=== PATIENT | female | born 1995 | race Caucasian/White ===

== ENCOUNTER 2017-07-25 13:54 | Emergency (ER) | payer MEDICAID, SELFPAY ==
[2017-07-25 13:55] VITALS: BP 139/90; PULSE 70; RESP 16; TEMP 36.8; O2SAT 100; BMI 20.2
--- NOTE | 2017-07-25 16:25 | ED.DCSUM_ITS ---
- ER Visit Summary Date of Service: 07/25/17 Chief Complaint: Dental pain History of Present Illness: The patient is a [address] Preciado, her dentist, hold 5 teeth yesterday and placed her on Ultram. She reports the medication makes her nauseated. She has been unable to take it. She has a sharp, throbbing pain is 10 out of 10 severity. Is worsened with eating or swallowing. She denies any other complaints. Physical Examination: Vitals: Stable. Afebrile. Mouth: No trismus. No edema of the floor of the mouth. Right mandibular second and third molars are surgically absent. Left maxillary second and third molars are surgically absent. Left mandibular third molar is absent. There is no exposed bone at any extraction site to suggest a dry socket. General: A&O x 3. NAD. Cardiovascular exam: Regular rate and rhythm, no murmur, rub or gallop. Respiratory exam: Clear to auscultation bilaterally. No wheezes or stridor. Abdominal exam: Soft, nontender, nondistended, normal bowel sounds. No peritoneal signs. Extremity: No clubbing, cyanosis, or edema. Emergency Department Course and Treatment: An [facility] report was obtained which shows that she is only had one prescription for opiates in the past year other than the Ultram that she got filled yesterday. She is given a dose of oxycodone and Zofran here. Treatment Plan: Patient will be discharged 20 oxycodone and Zofran. Instructed to follow-up with her dentist in 3-5 days not improving. Disposition: To home in improved and stable condition. Impression: 1. Post extraction pain. This note was generated with [employer] dictation software. It may contain incorrect words, spelling, and punctuation that were not noted in review of the chart prior to signing ED Disposition - Plan for ED Patient: Disposition: Home or Assisted Living Chief Complaint: Dental Instructions: ED Tooth Pain Prescriptions: Oxycodone HCl/Acetaminophen [Percocet 5/325] 1 tablet PO Q6H PRN PRN 5 Days #20 tablet PRN Reason: Pain Ondansetron [Zofran Odt] 4 mg PO Q8H PRN PRN #10 tablet PRN Reason: Nausea Referrals: Dentist,Your [STAFF PHYSICIAN] - 3-5 Days if not improving
[2017-07-25] MEDS: Ondansetron ODT 4 MG Tablet PO (16:30)
[2017-07-25] MEDS: oxyCODONE 5 MG Tablet 10 MG PO (16:42)
--- NOTE | 2017-07-25 16:50 | ED.RN ---
Verbal and written d/c instructions given. All questions answered. Skin w/d. ABCS intact. Gait steady out of department.
== END 2017-07-25 16:45 | disposition home or self-care (01) ==
PROVIDERS: Emergency Provider Emergency Medicine; Family Provider Nurse Practitioner Family; PCP Nurse Practitioner Family
DX: K08.89 Other specified disorders of teeth and supporting structures (principal); Z98.818 Other dental procedure status; F17.200 Nicotine dependence, unspecified, uncomplicated
CPT/HCPCS: 99283

== ENCOUNTER 2017-09-26 22:51 | Emergency (ER) | payer MEDICAID, SELFPAY ==
[2017-09-26 22:52] VITALS: BP 128/75; PULSE 60; RESP 16; TEMP 36.7; O2SAT 100; BMI 21.4
--- NOTE | 2017-09-26 23:08 | RAD_ITS ---
STUDY: X-RAY - RIGHT ELBOW REASON FOR EXAM: Female, 22 years old. Elbow pain. TECHNIQUE: 3 view(s) of the elbow. COMPARISON: None. FINDINGS: Normal visualized humerus, radius and ulna. Normal radiocapitellar and ulnotrochlear articulations. The soft tissue structures are unremarkable. RAD/Elbow min 3 Views IMPRESSION: Normal x-ray examination of the elbow. Electronically Signed: Vamsi Stephenson MD at 0:39 EDT , Service support ,
--- NOTE | 2017-09-26 23:10 | ED.VISSUMM ---
- ER Visit Summary Date of Service: 09/26/17 Chief Complaint: Right elbow pain History of Present Illness: The patient is a 22 F presenting with right elbow pain. She states it started this evening. She does a lot of pulling and pushing at work. She does not recall a specific injury. She tried ibuprofen at home. She was concerned when she felt her elbow because she thought the bones were out of place. She is able to move her elbow without difficulty. She has tingling in her small and ring finger. No other complaints. Physical Examination: Vitals are stable. Patient is afebrile. Alert no acute distress. HEENT exam is unremarkable. Neck is nontender Lungs are equal bilaterally. Heart is regular rate and rhythm. Extremities right medial elbow tenderness with AFROM. Normal pulses and cap refill. Paresthesia right ring and small finger. Skin is warm and dry. No focal neurologic deficit. Remainder of exam is unremarkable. Emergency Department Course and Treatment: Ice pack was applied. Right elbow x-ray is normal. She is advised to ice and elevate. She is given a sling and advised range of motion exercises. Advised to follow-up with her primary care physician. Advised return ED if worsening complaints. Disposition: Discharge home Impression: Right elbow strain This note was generated with [employer] dictation software. It may contain incorrect words, spelling, and punctuation that were not noted in review of the chart prior to signing ED Disposition - Plan for ED Patient: Disposition: Home or Assisted Living Chief Complaint: Upper Extremity Injury Instructions: ED Sprain Elbow Prescriptions: Naproxen [Naprosyn] 500 mg PO BID PRN #20 tablet Referrals: Maye Dacosta NP-C [Primary Care Provider] -
--- NOTE | 2017-09-26 23:14 | ED.DCSUM_ITS ---
- ER Visit Summary Date of Service: 09/26/17 Chief Complaint: Right elbow pain History of Present Illness: The patient is a 22 F presenting with right elbow pain. She states it started this evening. She does a lot of pulling and pushing at work. She does not recall a specific injury. She tried ibuprofen at home. She was concerned when she felt her elbow because she thought the bones were out of place. She is able to move her elbow without difficulty. She has tingling in her small and ring finger. No other complaints. Physical Examination: Vitals are stable. Patient is afebrile. Alert no acute distress. HEENT exam is unremarkable. Neck is nontender Lungs are equal bilaterally. Heart is regular rate and rhythm. Extremities right medial elbow tenderness with AFROM. Normal pulses and cap refill. Paresthesia right ring and small finger. Skin is warm and dry. No focal neurologic deficit. Remainder of exam is unremarkable. Emergency Department Course and Treatment: Ice pack was applied. Right elbow x- ray is normal. She is advised to ice and elevate. She is given a sling and advised range of motion exercises. Advised to follow-up with her primary care physician. Advised return ED if worsening complaints. Disposition: Discharge home Impression: Right elbow strain This note was generated with [employer] dictation software. It may contain incorrect words, spelling, and punctuation that were not noted in review of the chart prior to signing ED Disposition - Plan for ED Patient: Disposition: Home or Assisted Living Chief Complaint: Upper Extremity Injury Instructions: ED Sprain Elbow Prescriptions: Naproxen [Naprosyn] 500 mg PO BID PRN #20 tablet Referrals: Maye Dacosta NP-C [Primary Care Provider] -
[2017-09-27] MEDS: oxyCODONE 5 MG Tablet PO (00:02)
--- NOTE | 2017-09-27 00:43 | ED.DEP ---
ED Disposition - Plan for ED Patient: Chief Complaint: Upper Extremity Injury Instructions: ED Sprain Elbow Prescriptions: Naproxen [Naprosyn] 500 mg PO BID PRN #20 tablet Referrals: Maye Dacosta NP-C [Primary Care Provider] -
[2017-09-27 00:58] VITALS: PULSE 62; RESP 16; O2SAT 97
== END 2017-09-27 00:59 | disposition home or self-care (01) ==
LOC: ED 23:37
PROVIDERS: Emergency Provider Emergency Medicine; Family Provider Nurse Practitioner Family; PCP Nurse Practitioner Family
DX: S46.811A Strain of other muscles, fascia and tendons at shoulder and upper arm level, right arm, initial encounter (principal); R20.2 Paresthesia of skin; X58.XXXA Exposure to other specified factors, initial encounter; Y93.9 Activity, unspecified; Y92.9 Unspecified place or not applicable; Z72.0 Tobacco use
CPT/HCPCS: 73080; 99283

== ENCOUNTER 2017-11-03 20:36 | Emergency (ER) | payer MEDICAID, SELFPAY ==
[2017-11-03 20:37] VITALS: BP 129/59; PULSE 78; RESP 24; TEMP 37; O2SAT 97; BMI 21.9
--- NOTE | 2017-11-03 20:48 | EKG12_ITS ---
Test Reason : OVERDOSE Blood Pressure : / mmHG Vent. Rate : 062 BPM Atrial Rate : 062 BPM P-R Int : 134 ms QRS Dur : 088 ms QT Int : 420 ms P-R-T Axes : 058 -19 049 degrees QTc Int : 426 ms Normal sinus rhythm Normal ECG Confirmed by MARICHUY HALLMAN, SAURAV ([id number]), photo editor ALEX GUADARRAMA ([id number]) on 11/09/2017 3:33:28 PM Referred By: YU Confirmed By:SAURAV BENEDICT MD
--- NOTE | 2017-11-03 20:57 | ED.VISSUMM ---
- ER Visit Summary Date of Service: 11/03/17 Chief Complaint: Overdose History of Present Illness: The patient is a 22 F presents to the emergency department after overdose. Patient states she has been struggling with her depression. States that her mother just about a year ago tomorrow. She states around this time, she has been increasingly depressed and anxious. She states she has been having a difficult time coping with it. She apparently had taken approximately 10 of her 25 mg hydroxyzine. She states that she was not trying to harm herself, but just wanted to feel better. She also admits to drinking alcohol. A friend had notified police of this. She was brought in by squad and underwent a psychiatric hold by the [facility] department. Physical Examination: Vital signs reviewed General: Well-nourished, well-developed Head: Normocephalic, atraumatic Eyes: Pupils equal and reactive, extraocular muscles intact Neck, supple, no lymphadenopathy Heart: Regular rate and rhythm Respiratory: No distress, clear bilaterally Abdomen: Soft, nontender, nondistended, no peritoneal signs Back: Nontender Extremities: Nontender, no edema, no cords Skin: Normal color no rash Neuro: Alert and oriented, no focal or lateralizing deficits Test Results: [] Emergency Department Course and Treatment: I did discuss the patient with poison control on arrival. They did recommend a 6 hour observation. The patient continues to be awake and alert. EKG shows no evidence of prolonged QT. Labs are unremarkable. The patient will be observed for the 6 hours and reevaluated by the oncoming physician. At that point, I do feel that she would require crisis evaluation due to depression and questionable suicidal gesture. Addendum will be added. Treatment Plan: [] Disposition: Pending Impression: 1. Depression This note was generated with [employer] dictation software. It may contain incorrect words, spelling, and punctuation that were not noted in review of the chart prior to signing ED Disposition - Plan for ED Patient: Chief Complaint: Overdose Referrals: Maye Dacosta NP-C [Primary Care Provider] -
[2017-11-03 21:05] LABS: Anion Gap 10 (5-15); BUN 9 mg/dL (7-18); BUN/Creat Ratio 14.4 RATIO (10-20); Calcium,Total 8.8 mg/dL (8.5-10.1); Chloride 115 mmol/L (98-107); Creatinine, Serum 0.63 mg/dL (0.55-1.02); EST Glomerular Filtration Rate 127 mL/min (>60); Est Glom Filt Rate - Afr Amer 153 mL/min (>60); Estimated Creatinine Clearance 121.98 ml/min; Glucose 84 mg/dL (74-106); Potassium 3.5 mmol/L (3.5-5.1); Sodium Level 145 mmol/L (136-145)
[2017-11-03 21:07] LABS: Absolute Neutrophil Count 3.7 X10^3/uL (2.0-7.7); Basophil# 0.03 X10^3/uL; Basophil% 0.4 % (0-1); Eosinophils% 5.4 % (0-5); Hematocrit 37.5 % (37-47); Hemoglobin 12.9 g/dl (12.0-15.0); Lymphocyte % 36.7 % (19-41); Mean Corp Hgb Conc 34.4 g/gl (32-36); Mean Corpuscular Hgb 29.9 pg (27.0-32.0); Mean Platelet Vol. 9.6 fl (6.2-12.0); Monocyte# 0.55 X10^3/uL; Monocyte% 7.5 % (0-10); Neutrophil # 3.68 X10^3/uL (2.7-7.7); Platelet Count 257 K/mm3 (150-450); RBC Distribution Width CV 13.5 % (11.6-14.6); RBC Distribution Width SD 43.4 fl (35.1-43.9); Red Blood Count 4.31 M/mm3 (4.2-5.4); White Blood Count 7.4 K/mm3 (4.4-11.0)
[2017-11-03 21:09] LABS: POSITIVE COUNT NO; POSITIVE DIFFERENTIAL NO; POSITIVE MORPHOLOGY NO
[2017-11-03 21:33] VITALS: BP 103/71; PULSE 62; RESP 15; O2SAT 99
[2017-11-03 21:52] LABS: Pregnancy, Serum, hCG Quali. NEGATIVE Negative (0-9 Nonpreg)
[2017-11-03 22:02] LABS: Acetaminophen (Tylenol) Level < 2.0 ug/mL (10.0-30.0); Salicylate < 1.7 mg/dL (2.8-20.0)
[2017-11-03 22:31] LABS: Amphetamine Urine VISTA NEGATIVE (<1000 ng/mL); Barbiturate Urine VISTA NEGATIVE (< 200 ng/mL); Benzodiazepine Urine VISTA NEGATIVE (< 200 ng/mL); Cocaine Urine VISTA NEGATIVE (< 300 ng/mL); Ecstacy Urine VISTA NEGATIVE (< 500 ng/mL); Methadone Urine VISTA NEGATIVE (< 300 ng/mL); PCP Urine VISTA NEGATIVE (< 25 ng/mL); THC Urine VISTA POSITIVE (< 50 ng/mL); Vista UDS pH Range 5
[2017-11-03 22:51] VITALS: BP 96/59; PULSE 72; RESP 15
[2017-11-03 23:47] VITALS: BP 117/63; PULSE 79; RESP 14; O2SAT 98
[2017-11-04] VITALS: BP 109/55; PULSE 68; RESP 17; O2SAT 98
[2017-11-04 01:14] VITALS: BP 110/55; PULSE 66; RESP 16; O2SAT 96
[2017-11-04 02:00] VITALS: BP 122/62; PULSE 86; RESP 15; O2SAT 97
--- NOTE | 2017-11-04 03:09 | ED.DEP ---
ED Disposition - Plan for ED Patient: Chief Complaint: Overdose Instructions: ED Depression Referrals: Counseling,Center [GROUP OF PHYSICIANS] -
[2017-11-04 03:41] VITALS: BP 122/77; PULSE 85; RESP 16; O2SAT 100
--- NOTE | 2017-11-04 03:41 | ED.RN ---
THIS NURSE REVIEWED D/C INSTRUCTIONS WITH PT. PT VERBALIZED UNDERSTANDING OF INSTRUCTIONS. IV D/C. IV CATHETER INTACT. PT TOLERATED WELL. PT DENIES FURTHER NEEDS OR QUESTIONS AT THIS TIME. 2 BAGS OF PT BELONGINGS RETURNED TO THE PT
== END 2017-11-04 03:42 | disposition home or self-care (01) ==
PROVIDERS: Emergency Provider Emergency Medicine; Family Provider Nurse Practitioner Family; PCP Nurse Practitioner Family
DX: F32.9 Major depressive disorder, single episode, unspecified (principal); F41.9 Anxiety disorder, unspecified; Z72.0 Tobacco use
CPT/HCPCS: 80048; 80307; 80320; 80329; 84703; 85025; 93005; 99284; J7030; A4216; G0480

== ENCOUNTER 2018-08-14 14:41 | Emergency (ER) | payer MEDICAID, SELFPAY ==
[2018-08-14 14:42] VITALS: BP 143/76; PULSE 71; RESP 18; TEMP 36.6; O2SAT 98; BMI 21.4
[2018-08-14 14:50] VITALS: BP 128/80; PULSE 75; RESP 14; O2SAT 100
--- NOTE | 2018-08-14 15:33 | RAD_ITS ---
STUDY: X-RAY - RIGHT TIBIA AND FIBULA REASON FOR EXAM: Female, 23 years old. Numbness and tingling sensation. TECHNIQUE: 2 view(s) of the tibia and fibula were obtained. COMPARISON: None. FINDINGS: Normal visualized tibia. Normal visualized fibula. The soft tissue structures are unremarkable. RAD/Tibia & Fibula 2 Views IMPRESSION: Normal x-ray examination of the tibia and fibula. Electronically Signed: Epi Christian, at 15:49 EDT , Service support ,
--- NOTE | 2018-08-14 15:46 | ED.DCSUM_ITS ---
- ER Visit Summary Date of Service: 08/14/18 Chief Complaint: Right foot weakness History of Present Illness: The patient is a 23 F who sees Cristofer Milleron. 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 States the next day she found that she was unable to dorsiflex her right foot. She denies any pain. She denies any other injury. Patient does report she has an occasional sharp pain in her lower back that is 10 out of 10 when it occurs and she is pain-free currently. States that this only comes on if she turns or bends wrong. It resolves after a few minutes. Nothing seems to bring this on in particular. There is no radiation of the pain. She denies any problems with her bowels or her bladder. No groin numbness. Review of systems: General: No fever, chills, cold sweats. Cardiovascular: No chest pain, palpitations. Respiratory: No cough, shortness of breath, dyspnea on exertion. Gastrointestinal: No abdominal pain, nausea, vomiting, diarrhea, melena, or hematochezia. Genitourinary: No dysuria, frequency, hematuria. Skin: No rash. Neuro: No headache, numbness, weakness. Physical Examination: Vitals: Stable. Afebrile. General: Well-nourished and well-developed. Head: Normocephalic atraumatic. Neck: Supple, no lymphadenopathy. No JVD. Nontender. Cardiovascular: Regular rate and rhythm. No murmurs. Respiratory: No respiratory distress. Clear to auscultation bilaterally. Abdominal: Soft, nontender, nondistended, normal bowel sounds. No guarding, rebound, or peritoneal signs. Back: Nontender. Extremities: Nontender, no edema. Skin: Normal color, no rash. Neurologic: Alert and oriented ?3. Cranial nerves II through XII are intact. Normal strength and sensation except her right foot. She has 1 out of 5 dorsiflexion. She has normal sensation light touch. She has a 2+ dorsalis pedis pulse. Psych: Normal affect. Test Results: Right tib-fib x-ray is normal. Emergency Department Course and Treatment: Patient is resting comfortably without complaint. Treatment Plan: She was discussed with Dr. Bonilla. She will be discharged in a walking boot and instructed to follow-up in his office for further evaluation and treatment. She is happy with this plan. Return to the emergency department for any worsening symptoms. Disposition: To home in improved and stable condition. Impression: 1. Right peroneal nerve deficit. This note was generated with [email or web address] dictation software. It may contain incorrect words, spelling, and punctuation that were not noted in review of the chart prior to signing ED Disposition - Plan for ED Patient: Disposition: Home or Assisted Living Instructions: ED Foot Drop Referrals: Darnell Bonilla DPM [STAFF PHYSICIAN] - 2 Days
[2018-08-14 16:07] VITALS: BP 123/99; PULSE 74; RESP 16; O2SAT 99
== END 2018-08-14 16:08 | disposition home or self-care (01) ==
LOC: ED 15:16
PROVIDERS: Emergency Provider Emergency Medicine; Family Provider Physician Assistant; PCP Physician Assistant
DX: S84.11XA Injury of peroneal nerve at lower leg level, right leg, initial encounter (principal); X58.XXXA Exposure to other specified factors, initial encounter; Y93.9 Activity, unspecified; Y92.9 Unspecified place or not applicable; Y99.9 Unspecified external cause status; M54.5 Low back pain; Z72.0 Tobacco use
CPT/HCPCS: 73590; 99282